=== PATIENT | female | born 1975 | race Caucasian/White ===

== ENCOUNTER 2019-07-20 13:40 | Observation (INO) | payer OTHER ==
[2019-09-23 13:13] VITALS: BP 110/63
[2019-09-23] MEDS ORDERED: PREN-217 PO (13:16)
[2019-09-23] MEDS ORDERED: LEVO75 PO (13:45)
== END 2019-09-23 13:40 | disposition home or self-care (01) ==
LOC: 4S 09-23 12:03
PROVIDERS: ADMIT Obstetrics & Gynecology; ATTEND Obstetrics & Gynecology
DX: O24.410 Gestational diabetes mellitus in pregnancy, diet controlled (principal); E03.9 Hypothyroidism, unspecified; Z3A.38 38 weeks gestation of pregnancy
CPT/HCPCS: 59025; 81001; G0378

== ENCOUNTER 2019-09-30 19:42 | Inpatient (IN) | payer OTHER ==
[~2019-09-30] VITALS: Ht 162.6 cm; Wt 81.2 kg
[~2019-09-30 19:42] MED LIST: LEVO75 PO; PREN-217 PO
[2019-09-30] MEDS ORDERED: RINGERS SOLUTION,LACTATED 1,000 ML IV PRN (21:03)
[2019-09-30] MEDS ORDERED: OXYTOCIN 30 UNITS/LACT RINGERS 500 ML IV PRN (21:03)
[2019-09-30] MEDS ORDERED: OXYTOCIN 30 UNITS/LACT RINGERS 500 ML IV ONE (21:03)
[2019-09-30] MEDS ORDERED: MISOPROSTOL 25 MCG TABLET PR ONE (21:15)
[2019-09-30] MEDS ORDERED: FentaNYL CITRATE-PF 100 MCG/2 ML VIAL IVP PRN (21:15)
[2019-09-30] MEDS ORDERED: METOCLOPRAMIDE HCL 5 MG/ML 2 ML VIAL IVP PRN (21:15)
[2019-09-30] MEDS ORDERED: CITRIC ACID/SODIUM CITRATE 30 ML SOLUTION UDCUP PO PRN (21:15)
[2019-09-30] MEDS ORDERED: AMPICILLIN SODIUM 2 GM/NS 100 ML IV ONE (21:15)
[2019-09-30 21:21] VITALS: BP 120/68
[2019-09-30] MEDS ORDERED: OMEGA PO (21:26)
[2019-09-30] MEDS: RINGERS SOLUTION,LACTATED 1,000 ML IV SCH (21:37)
[2019-09-30 21:51] LABS: BASOPHILS % (AUTO) 0.4 % (0.0-2.0); EOSINOPHILS % (AUTO) 1.1 % (1.0-6.0); HEMATOCRIT 35.7 % (36-46); HEMOGLOBIN 12.3 g/dL (12.0-16.0); LYMPHOCYTES # (AUTO) 1.5 K/uL (1.0-4.8); MEAN CORPUSCULAR HEMOGLOBIN 29.2 pg (26.0-34.0); MEAN CORPUSCULAR HGB CONC 34.5 G/dL (31.0-37.0); MEAN CORPUSCULAR VOLUME 85 fL (80-100); MONOCYTES # (AUTO) 0.6 K/uL (0.1-1.0); MONOCYTES % (AUTO) 6.8 % (2.0-9.0); NEUTROPHILS # (AUTO) 6.7 K/uL (1.8-7.7); NEUTROPHILS % (AUTO) 74.7 % (40.0-70.0); PLATELET COUNT (AUTO)-OB 151 K/uL (150-450); RED BLOOD CELL COUNT(AUTO) 4.22 MIL/uL (4.00-5.20); RED CELL DISTRIBUTION WIDTH 14.2 % (11.5-14.5)
[2019-10-01] MEDS: RINGERS SOLUTION,LACTATED 1,000 ML IV SCH ×3 (02:21→11:11)
[2019-10-01 04:08] LABS: GLUCOMETER DEV NAME(LOC) 4S.; GLUCOSE,POINT OF CARE 91 MG/DL (70-110)
[2019-10-01] MEDS ORDERED: ROPIVACAINE HCL/PF 0.2% 100 ML ED ONE (06:17)
[2019-10-01] MEDS ORDERED: ROPIVACAINE HCL/PF 0.2% 100 ML ED PRN (06:46)
[2019-10-01] MEDS ORDERED: ONDANSETRON HCL 4 MG/2 ML VIAL IVP PRN (07:00)
[2019-10-01] MEDS ORDERED: NALBUPHINE HCL 10 MG/ML VIAL IVP PRN (07:00)
[2019-10-01] MEDS ORDERED: DiphenhydrAMINE HCL 50 MG/ML VIAL IVP PRN (07:00)
[2019-10-01] MEDS ORDERED: OXYGEN THERAPY IH SCH (08:00)
[2019-10-01] MEDS ORDERED: TERBUTALINE SULFATE 1 MG/ML VIAL ONE (09:25)
[2019-10-01] MEDS: LEVOTHYROXINE SODIUM 75 MCG TABLET PO SCH (09:41)
[2019-10-01] MEDS: AMPICILLIN SODIUM 1 GM/NS 50 ML IV SCH ×2 (09:51→14:15)
[2019-10-01] MEDS ORDERED: RINGERS SOLUTION,LACTATED 1,000 ML IV ONE (16:36)
[2019-10-01] MEDS ORDERED: BENZOCAINE 20%/MENTHOL 56 GM SPRAY CANISTER TP PRN (16:45)
[2019-10-01] MEDS ORDERED: LANOLIN 7 GM OINTMENT TP PRN (16:45)
[2019-10-01] MEDS ORDERED: OxyCODONE HCL/ACETAMINOPHEN 5-325 MG TABLET PO PRN ×2 (16:45)
[2019-10-01] MEDS ORDERED: GLYCERIN/WITCH HAZEL LEAF 40 PADS JAR TP PRN (16:45)
[2019-10-01] MEDS ORDERED: MEASLES/MUMPS/RUBELLA VACCINE, LIVE 0.5 ML/VIAL SQ ONE (16:45)
[2019-10-01] MEDS: IBUPROFEN 600 MG TABLET PO PRN (18:35)
[2019-10-01] MEDS: MAGNESIUM HYDROXIDE SUSPENSION 30 ML UDCUP PO SCH (20:52)
[2019-10-02] MEDS: IBUPROFEN 600 MG TABLET PO PRN ×3 (04:08→16:24)
[2019-10-02] MEDS: LEVOTHYROXINE SODIUM 75 MCG TABLET PO SCH (06:49)
[2019-10-02] MEDS: MAGNESIUM HYDROXIDE SUSPENSION 30 ML UDCUP PO SCH (09:42)
[2019-10-02] MEDS ORDERED: IBUP-2070 PO (10:28)
== END 2019-10-02 16:45 | disposition home or self-care (01) | DRG 807 ==
LOC: OBSVTOIN 19:44 → 4S 19:44
PROVIDERS: ADMIT Obstetrics & Gynecology; ATTEND Obstetrics & Gynecology
PROC: 10907ZC Drainage of Amniotic Fluid, Therapeutic from Products of Conception, Via Natural or Artificial Opening (ICD-10-PCS; principal; 2019-10-01)
PROC: 10E0XZZ Delivery of Products of Conception, External Approach (ICD-10-PCS; 2019-10-01)
PROC: 0KQM0ZZ Repair Perineum Muscle, Open Approach (ICD-10-PCS; 2019-10-01)
PROC: 3E0R3BZ Introduction of Anesthetic Agent into Spinal Canal, Percutaneous Approach (ICD-10-PCS; 2019-10-01)
PROC: 00HU33Z Insertion of Infusion Device into Spinal Canal, Percutaneous Approach (ICD-10-PCS; 2019-10-01)
DX: O99.824 Streptococcus B carrier state complicating childbirth (principal); Z37.0 Single live birth; O70.1 Second degree perineal laceration during delivery; O77.0 Labor and delivery complicated by meconium in amniotic fluid; Z3A.39 39 weeks gestation of pregnancy
CPT/HCPCS: 86850; 86900; 86901; J0290; J2590; J2795; J3105; J7120